=== PATIENT | male | born 1985 | race Caucasian/White ===

== ENCOUNTER 2023-09-16 11:40 | Emergency (ER) | payer MEDICAID, SELFPAY ==
--- NOTE | 2023-09-16 11:51 | ED_ITS ---
[facility] - General Adult General Chief complaint: Skin/Abscess/Foreign Body Stated complaint: lump on back of head Time Seen by Provider: 09/16/23 11:50 Source: patient and lang interpreter Mode of arrival: ambulatory Limitations: language barrier History of Present Illness ED Provider: citlalli [facility] narrative: Patient is a 38-year-old Rwandan-speaking male presenting to the emergency department with complaint of mass to his occipital scalp for the past several months. Reports the area began as a pinpoint area and has since grown in size. States recently has become tender and is interfering with his sleep/laying his head on the pillow. Denies any discharge or drainage from the mass at any point since onset. Denies fevers. States he called his PCP but was unable to be seen for several months. MD complaint: mass of scalp Onset (ago): month(s) Location: head Radiation: non-radiation Severity: moderate Quality: aching Pain Consistency: constant Relieving factors: none Associated symptoms: denies other symptoms Treatments prior to arrival: none Related Data Allergies Allergy/AdvReac Type Severity Reaction Status Date / Time No Known Allergies Allergy Verified 09/16/23 12:00 Review of Systems 2 Review of Systems: Patient is a 38-year-old Rwandan-speaking male presenting to the emergency department with complaint of mass to his occipital scalp for the past several months. Yes all other systems are reviewed and are negative Constitutional: Constitutional: Reports as per [facility] Social History Social History Advance Directives: No Advance Directives Information Provided: No Do you have a plan to hurt others: No Plan Physical Exam ED Vital Signs: Vital Signs - 24 hr 09/16/23 11:56 Temperature 98.1 F Pulse Rate 73 Respiratory Rate 17 Blood Pressure 125/83 Pulse Oximetry 97 Oxygen Delivery Method Room Air BMI result Body Mass Index 23.6 Vital signs have been reviewed and appear to be correct. Blood pressure normal. Heart rate normal. Respiratory rate normal. Temperature normal. Oxygen saturation normal. Const General: cooperative, healthy appearing and no acute distress Orientation/consciousness: oriented to person, oriented to place, oriented to time and patient oriented x3 Limitations: no limitations HENMT Head: Yes normocephalic and Yes atraumatic Head images: 2 1. 1cm diameter immobile tender flesh-colored nodule without hair, no fluctuance, no erythema, no warmth, no drainage Ears: external ears normal General nose exam: Normal external nose present Face and sinus: Yes face symmetric Mouth: oropharynx normal and moist mucous membranes Throat: Yes uvula midline Eyes Pupils: Equal, round and reactive pupils present Neck Neck: Yes normal visual inspection and Yes supple Lymphatic: no lymphadenopathy noted Resp Effort & Inspection: normal respiratory effort and able to speak in complete sentences Auscultation: clear to auscultation bilaterally Cardio Rate: regular rate Rhythm: regular rhythm Heart sounds: S1 normal heart sound present and S2 normal heart sound present GI Palpation (GI): Soft to palpation and nontender Auscultation: normoactive bowel sounds General: Yes no CVA tenderness Back/Spine/Pelvis Back: no CVA tenderness Skin General skin exam: elasticity normal and turgor normal Neuro General: oriented to person, oriented to place, oriented to time, patient oriented x3, moves all extremities, no focal motor deficits and CN's II-XI intact bilaterally Cranial nerves: Yes Equal, round and reactive pupils present Cognition (Neuro): normal cognition Extrem General: Yes full ROM, Yes no pedal edema and Yes no calf tenderness Psych Mental Status: mental status grossly normal Affect: normal affect Thought process: Normal thought process present Medical Decision Making Medical Decision Making [facility] Narrative: Patient is a 38-year-old Rwandan-speaking male presenting to the emergency department with complaint of mass to his occipital scalp for the past several months. On exam patient is awake, A+Ox3, VS WNL, afebrile, normal neurological exam without focal deficits, physical exam findings as above. Given reported symptoms and physical exam findings, initial differential includes folliculitis, cyst, abscess. Discussed with patient that as area is not fluctuant, erythematous or warm, unlikely abscess or folliculitis. Advised patient he will need to follow-up with a surgeon for likely biopsy of the mass to determine etiology. Offered to treat patient with course of antibiotics to see if this decreases tenderness to the area. Patient declined treatment with antibiotics. Will refer to General surgery for further evaluation and management. Advised patient to contact PCP and notify them he was seen in the emergency department but referred to surgery. Return precautions discussed at bedside. Patient verbalized understanding of and agreement with plan. Differential Diagnosis Differential Diagnoses: The differential diagnosis associated with the presentation includes As per [facility] External Record Review External record reviewed: Inpatient record, Office record and Outpatient record Prescription Management I considered prescription management with: Antibiotic (patient refused) Discharge Plan Discharge Clinical Impression: Mass of scalp Patient Disposition: Home, Self-Care Additional Instructions: You were evaluated in the emergency department for a mass to your scalp. It is recommended that you follow up with general surgery for further evaluation and management. You should follow up with your primary care provider as well. Return to the emergency department if you notice redness, warmth, or drainage from the area or develop fever. Referrals: [facility] [place] [facility] [Provider Group] Print Language: Lithuanian
[2023-09-16 11:56] VITALS: BP 125/83; PULSE 73; RESP 17; TEMP 36.7; O2SAT 97; BMI 23.6
[2023-09-16 12:53] VITALS: BP 115/76; PULSE 60; RESP 12; TEMP 36.2; O2SAT 97
== END 2023-09-16 12:54 | disposition home or self-care (01) ==
PROVIDERS: Emergency Provider Emergency Medicine; PCP Nurse Practitioner
DX: R22.0 Localized swelling, mass and lump, head (principal)
CPT/HCPCS: 99282

== ENCOUNTER 2023-09-26 08:35 | Outpatient (REF) | payer MEDICAID, SELFPAY | END 2023-09-26 08:36 | disposition home or self-care (01) | LOC: HO.LAB 08:35 | PROVIDERS: PCP Nurse Practitioner; Visit Provider Surgery | DX: L02.811 Cutaneous abscess of head [any part, except face] (principal) | CPT/HCPCS: 10060; 87070; 87205; 99202 ==

== ENCOUNTER 2023-09-26 08:35 | Outpatient (AMB) | payer MEDICAID, SELFPAY ==
--- NOTE | 2023-09-26 08:48 | MHC.OFFVIS ---
Vital Signs 09/26/23 08:49 Height 5 ft 9 in Weight 167 lb 1.766 oz BMI 24.7 BP 112/78 Blood Pressure Location Lt brachial Position Sitting Intake Visit Reasons: lump back of head Intake Note: Patient is seen in office for evaluation and treatment of a lump of the back of the head. Pt c/o: onset for 3 months, has increase in size, some discharge, pain, at times feels dizzy, and uncomfortable when laying on it Christmas Bell Ringer Required: Yes Christmas Bell Ringer Language: Skin Grader Services: Christmas Bell Ringer Present Christmas Bell Ringer Name: Aury AVALOS Information Interpreted: non-clinical & clinical Straw Hat Washer Operator: Straw Hat Washer Operator Present Accompanied by: Family/Other Allergies No Known Allergies Allergy (Verified 09/26/23 08:49) Medication List - Last Reconciled 09/26/23 by Shiraz Grove MD cephalexin 500 mg PO TID hydrocodone-acetaminophen 5-325 mg 1 tab PO Q4-6H PRN HPI Comments Details: Patient presents because of an infected posterior scalp cyst. He has had a cyst here for many years time. Over the last several weeks has become painful and tender and yesterday spontaneously drained pus. Patient presents here with his . Chart was reviewed and patient evaluate Physical Exam Vital Signs: Last Vital Signs BP 112/78 09/26/23 08:49 BMI result Body Mass Index 24.7 HEENT Other: Proximally 3 x 2 cm if infected right posterior scalp cyst. Office Procedures I&D Drain Details: Risks, benefits, alternatives of incision and drainage of posterior scalp abscess were reviewed the patient and included but not limited to bleeding, infection, recurrence, numbness, pain, scarring the patient was to proceed. All questions answered. After appropriate positioning, patient underwent % lidocaine and Betadine prep and uneventfully incision drainage of posterior scalp abscess. Copious amounts of purulent material were retrieved. Cultures were obtained. Wounds irrigated, secured hemostasis, packed, and dressing applied. Patient tolerated procedure well 70495-Rsvezhjm of Skin Abscess, complex All charges added?: Procedure code (CPT) selection complete Assessment & Plan Assessment & Plan (1) Scalp abscess: Code(s): L02.811 - Cutaneous abscess of head [any part, except face] Category: Surgical Plan: Arrangements were made with the anterior guarding packing changes, patient will be given analgesics, antibiotics, local wound instructions, and will see me as directed or p.r.n.. All questions answered. Orders: Orders AMB Incision & Drainage Today L02.811 - Cutaneous abscess of head [any part, except face] Medications: New hydrocodone-acetaminophen 5-325 mg Partial Fill upon patient request. 1 tab PO Q4-6H PRN 30 tabs 0RF pain cephalexin 500 mg PO TID 30 caps 0RF Coding Level of Care Code New Pt Level 5 (10402) Diagnoses Scalp abscess L02.811 CPT Codes I&D Drain - Drain 2: 97694-Egwaaivr of Skin Abscess, complex ([id number])
[2023-09-26 08:49] VITALS: BP 112/78; BMI 24.7
== END 2023-09-26 09:27 | disposition home or self-care (01) ==
PROVIDERS: PCP Nurse Practitioner; Referring Provider Nurse Practitioner; Visit Provider Surgery
DX: L02.811 Cutaneous abscess of head [any part, except face] (principal)
CPT/HCPCS: 10060; 99204

== ENCOUNTER → 2023-09-27 14:30 | Outpatient (BNVA) | payer MEDICAID, SELFPAY | PROVIDERS: PCP Nurse Practitioner; Visit Provider Surgery | DX: Z48.01 Encounter for change or removal of surgical wound dressing (principal) | CPT/HCPCS: 99211 ==

== ENCOUNTER → 2023-09-28 13:28 | Outpatient (BNVA) | payer MEDICAID, SELFPAY | PROVIDERS: PCP Nurse Practitioner; Visit Provider Surgery | DX: Z48.00 Encounter for change or removal of nonsurgical wound dressing (principal) | CPT/HCPCS: 99211 ==

== ENCOUNTER → 2023-10-01 14:23 | Outpatient (BNVA) | payer MEDICAID, SELFPAY | PROVIDERS: PCP Nurse Practitioner; Visit Provider Surgery ==

== ENCOUNTER 2023-11-19 08:52 | Outpatient (AMB) | payer MEDICAID, SELFPAY ==
--- NOTE | 2023-11-19 08:56 | A.OFFVIS_ITS ---
Vital Signs 11/19/23 09:03 Height 5 ft 9 in Weight 164 lb BMI 24.2 BP 128/82 Blood Pressure Location Rt brachial Position Sitting Pulse 77 Intake Visit Reasons: discuss pilar cyst excision Intake Note: Patient here s/p I&D cyst on posterior scalp. Patient c/o: smaller bumps around scar. tender to touch. Would like to know if cyst is spreading. Sales Coordinator Required: No Accompanied by: spouse Salima Allergies No Known Allergies Allergy (Verified 11/19/23 09:02) HPI Comments Details: Patient presents with a significant other. He is here for follow-up status post I&D of infected Pilar cyst of posterior scalp. He has no acute issues but would like to have the cyst excised. Physical Exam Vital Signs: Last Vital Signs Pulse 77 11/19/23 09:03 BP 128/82 11/19/23 09:03 BMI result Body Mass Index 24.2 HEENT Other: I&D wound very well completely healed. Pilar cyst distal palpable. Assessment & Plan Assessment & Plan (1) Pilar cyst of scalp: Code(s): L72.11 - Pilar cyst Category: Surgical Plan Current plan is to arrange for office Pilar cyst excision in the few weeks time. Arrangements made for this. All questions answered. Coding Level of Care Code Global (14783) Diagnoses Pilar cyst of scalp L72.11
[2023-11-19 09:03] VITALS: BP 128/82; PULSE 77; BMI 24.2
== END 2023-11-19 09:14 | disposition home or self-care (01) ==
PROVIDERS: PCP Nurse Practitioner; Visit Provider Surgery
DX: L72.11 Pilar cyst (principal)
CPT/HCPCS: 99024

== ENCOUNTER → 2023-11-19 08:52 | Outpatient (BNVA) | payer MEDICAID, SELFPAY | PROVIDERS: PCP Nurse Practitioner; Visit Provider Surgery | DX: L72.11 Pilar cyst (principal); Z48.817 Encounter for surgical aftercare following surgery on the skin and subcutaneous tissue; Z98.890 Other specified postprocedural states | CPT/HCPCS: 99212 ==

== ENCOUNTER 2024-01-21 08:55 | Outpatient (AMB) | payer MEDICAID, SELFPAY ==
[2024-01-21 09:02] VITALS: BP 126/76; RESP 76; BMI 24.2
--- NOTE | 2024-01-21 09:02 | A.OFFVIS_ITS ---
Vital Signs 01/21/24 09:02 Height 5 ft 9 in Weight 164 lb BMI 24.2 BP 126/76 Blood Pressure Location Rt brachial Position Sitting Respiration 76 H Intake Visit Reasons: Excision cyst~ post scalp Intake Note: Patient here for excision of cyst on posterior scalp. Wad Compressor Operator Adjuster Required: No Accompanied by: Spouse Allergies No Known Allergies Allergy (Verified 01/21/24 09:03) HPI Comments Details: Patient presents with a significant other. He wished to have elective excision of the posterior scalp pilar cyst. He is status post I&D of this in the past. Physical Exam Vital Signs: Last Vital Signs Resp 76 H 01/21/24 09:02 BP 126/76 01/21/24 09:02 BMI result Body Mass Index 24.2 HEENT Other: On exam today, the I&D incision site is well healed. There was no evidence of recurrence or persistence of the pilar cyst Assessment & Plan Assessment & Plan (1) Pilar cyst of scalp: Code(s): L72.11 - Pilar cyst Category: Surgical Plan I discussed with the patient that no need for excision at this time because the cyst has not recurred or require excision. All questions answered. Patient will otherwise follow-up p.r.n.. Coding Level of Care Code Est Pt Level 3 (39172) Diagnoses Pilar cyst of scalp L72.11
== END 2024-01-21 09:18 | disposition home or self-care (01) ==
PROVIDERS: PCP Nurse Practitioner; Visit Provider Surgery
DX: L72.11 Pilar cyst (principal)
CPT/HCPCS: 99213

== ENCOUNTER → 2024-01-21 08:55 | Outpatient (BNVA) | payer MEDICAID, SELFPAY | PROVIDERS: PCP Nurse Practitioner; Visit Provider Surgery | DX: L72.11 Pilar cyst (principal) | CPT/HCPCS: 99212 ==

== ENCOUNTER 2024-04-07 12:54 | Outpatient (AMB) | payer MEDICAID, SELFPAY ==
--- NOTE | 2024-04-07 12:57 | MHC.OFFVIS ---
Vital Signs 04/07/24 13:03 Height 5 ft 9 in Weight 171 lb BMI 25.2 BP 138/77 Blood Pressure Location Lt brachial Position Sitting Pulse 82 Intake Visit Reasons: pilar cyst recurrent Intake Note: Patient called and scheduled today's appointment for pilar cyst on scalp. Present for 2wks. Patient c/o: pain, tenderness. Experience Specialist Required: No Accompanied by: spouse Salima Allergies No Known Allergies Allergy (Verified 04/07/24 13:03) Medication List - Last Reconciled 04/07/24 by Shiraz Grove MD No Known Home Meds HPI Comments Details: Patient presents with a significant other. He was seen in the past for an infected posterior scalp cyst by me. He now presents with a similar complaint involving the top/vertex of his scalp. This has been going on for rough 2 weeks time. Physical Exam Vital Signs: Last Vital Signs Pulse 82 04/07/24 13:03 BP 138/77 04/07/24 13:03 BMI result Body Mass Index 25.2 HEENT Other: Patient has at the vertex of his scalp an area of induration but no fluctuance or abscess consistent with inflammation of sebaceous cyst. Assessment & Plan Assessment & Plan (1) Infected sebaceous cyst: Code(s): L72.3 - Sebaceous cyst; L08.9 - Local infection of the skin and subcutaneous tissue, unspecified Category: Surgical Plan Current plan is to attempt conservative therapy with local wound care in the form of warm compresses periodically and antibiotics. Patient was see me in few days' time for follow-up. Should symptoms progressively worsened nerves symptom, he has been instructed to contact the office. All questions answered. Medications: New cephalexin 500 mg PO TID 30 caps 0RF Coding Level of Care Code Est Pt Level 4 (26305) Diagnoses Infected sebaceous cyst L72.3; L08.9
[2024-04-07 13:03] VITALS: BP 138/77; PULSE 82; BMI 25.2
== END 2024-04-07 13:07 | disposition home or self-care (01) ==
PROVIDERS: PCP Nurse Practitioner; Visit Provider Surgery
DX: L72.3 Sebaceous cyst (principal); L08.9 Local infection of the skin and subcutaneous tissue, unspecified
CPT/HCPCS: 99214

== ENCOUNTER → 2024-04-07 12:54 | Outpatient (BNVA) | payer MEDICAID, SELFPAY | PROVIDERS: PCP Nurse Practitioner; Visit Provider Surgery | DX: L72.3 Sebaceous cyst (principal); L08.9 Local infection of the skin and subcutaneous tissue, unspecified | CPT/HCPCS: 99212 ==

== ENCOUNTER 2024-04-21 08:57 | Outpatient (REF) | payer MEDICAID, SELFPAY ==
--- OUTSIDE RECORDS SUMMARY | 2024-04-21 10:37 | XMS_ITS | Clinical Summary ---
Author Organization [facility] Address [address] [place] [address] Care Team Providers Care Chip Unloader Name Role Phone Jj Maya BUSTILLO Primary Care Provider [phone] Source Comments PLEASE NOTE, if this patient [...] Visit 08/03/2023 08/02/2022 Tobacco Screening 08/03/2023 08/02/2022 [id number] ( season) 2023 Imm-Influenza (#1) 2023 Alcohol and Drug Screen 02/27/2024 08/02/2022 Depression Annual Screen 02/27/2024 08/02/[address] [employer] Care Teams Chip Unloader Relationship Specialty Start Date End Date Maya Gardner NP [address] [place] [address] PCP - General Family Medicine, DISPLAY DECORATOR 01/01/24
== END 2024-04-21 08:58 | disposition home or self-care (01) ==
LOC: HO.LNP 08:57
PROVIDERS: PCP Nurse Practitioner; Visit Provider Surgery
DX: L72.0 Epidermal cyst (principal)
CPT/HCPCS: 11423; 88304; J2004

== ENCOUNTER 2024-04-21 08:57 | Outpatient (AMB) | payer MEDICAID, SELFPAY ==
--- NOTE | 2024-04-21 08:58 | MHC.OFFVIS ---
Intake Visit Reasons: 2wk pilar cyst vertex post scalp Intake Note: Patient here 2wk follow up pilar cyst on vertex scalp. Finished Cephalexin course. Patient c/o: feels like cyst is enlarging. C/o headaches. Strategic Marketing Associate Required: No Accompanied by: Spouse Allergies No Known Allergies Allergy (Verified 04/21/24 09:01) HPI Comments Details: Patient presents with a significant other. He was seen in the past for a scalp cyst. He now presents with a 2nd scalp cyst at the vertex which is increasing in size, become more symptomatic. Like to have it excised. Patient was known to me as noted above. Physical Exam HEENT Other: Patient was a roughly 3 x 2 cm vertex of scalp sebaceous cyst/soft tissue mass. No other lesions demonstrated. Office Procedures Excision Details: Risks, benefits, alternatives of excision of scalp cyst were reviewed with the patient included but not limited to bleeding, infection, recurrence, numbness, pain, scarring the patient wished to proceed. All questions answered. Consent site. After appropriate positioning, patient underwent 1% lidocaine and Betadine prep and a transverse by elliptical incision was made around the lesion in question. Specimen sent to pathology. Size was roughly 3 x 2 cm. Wound was irrigated, secured hemostasis, and closed using interrupted 2-0 Prolene sutures followed by bacitracin. Patient tolerated procedure well. 86527-Bivdiwei scalp/neck/hands/feet/genitalia 2.1cm-3cm Procedure code (CPT) selection complete Office Meds lidocaine 1 %-epinephrine 1:100,000 injection solution Performing Provider: Shiraz Grove MD Performing Location: [facility] [place] General Surgeons Administered by: Shiraz Grove MD on 04/21/24 09:30 Dose Route Admin Location Dispensed Lot Number Expiration Date [facility] Fabricator Artificial Breast 10 mL Infiltration 10 mL Assessment & Plan Assessment & Plan (1) Cyst, dermoid, scalp and neck: Code(s): D23.4 - Other benign neoplasm of skin of scalp and neck Category: Surgical Plan: Patient was been given local instructions including ice periodically, bacitracin each day, may shower starting tomorrow, and Tylenol or Motrin p.r.n. pain. All questions answered. Patient will see me as directed or p.r.n.. Orders: Orders AMB Excision Today D23.4 - Other benign neoplasm of skin of scalp and neck Medications: New lidocaine-epinephrine 1 %-1:100,000 10 mL Infiltration ONCE 30 mL 0RF D23.4 - Other benign neoplasm of skin of scalp and neck Coding Level of Care Code Est Pt Level 5 (32094) Diagnoses Cyst, dermoid, scalp and neck D23.4 CPT Codes Scalp/Neck/Hands/Feet/Genetalia - CPT: 58295-Mxndtkkq scalp/neck/hands/feet/genitalia 2.1cm-3cm ([id number])
--- OUTSIDE RECORDS SUMMARY | 2024-04-21 09:27 | XMS_ITS | Clinical Summary ---
Author Organization [facility] Address [address] [place] [address] Care Team Providers Care Content Checker Name Role Phone Jj Maya BUSTILLO Primary Care Provider [phone] Source Comments PLEASE NOTE, if this patient is a minor, it may be UNLAWFUL to discuss sensitive information that is contained in these records (such as FAMILY PLANNING, MENTAL HEALTH or SUBSTANCE ABUSE) with the minor patient's parent or other person without the patient's specific authorization.[facility] Allergies No known active allergies Medications nicotine, polacrilex, (NICORETTE) 4 mg gumIndications: Tobacco use disorder Take 1 Each by mouth as needed for smoking cessation Max 24 pieces per day. 110 Each 2 3 Active Active Problems Problem Noted Date Diagnosed Date Tobacco use disorder 06/08/2016 Family History Medical History Relation Name Comments Cancer Neg Social History Tobacco Use Types Packs/Day Years Used Date Smoking Tobacco: Every Day Cigarettes 0.5 12 Comments:Started age 25 Alcohol Use Standard Drinks/Week Comments No 0 (1 standard drink = 0.6 oz pur e alcohol) Social Connections Answer Date Recorded Connectedness 0 11/16/2023 Financial Resource Strain Answer Date R ecorded Financial Resource Strain 0 2022 Stress Answer Date Recorded Stress 0 08/02/2022 Physical Activity Answer Date Recorded Physical Activity 0 08/02/2022 Food Insecurity Answer Date Recorded Food 0 11/22/2023 Transportation Needs Answer Date Record ed Transportation 0 08/02/2022 Housing Stability Answer Date Recorded Housing 0 08/02/2022 Safety and Environment Answer Date Bernardino rded Safety 0 08/02/2022 Utilities Answer Date Recorded Utilities 0 08/02/2022 Employment Answer Date Recorded Stress 0 11/16/2023 Sex and Gender Information Value Date Recorded Sex Assigned at Male 08/02/2022 11:51 AM PDT Legal Sex Male 12:59 PM PST Gender Identity Male 08/02/2022 11:51 AM PDT Sexual Orientation Straight 08/02/2022 11 :51 AM PDT Last Filed Vital Signs Vital Sign Reading Time Taken Comments Blood Pressure 130/80 08/02/2022 2:48 PM EDT Pulse 74 08/02/2022 2:48 PM EDT Temperature 36.5 ??C (97.7 ??F) 08/02/2022 2:48 PM ED T Respiratory Rate 16 08/02/2022 2:48 PM EDT Oxygen Saturation 97% 06/08/2016 3:19 PM EDT Inhaled Oxygen Concentration - - Weight 70.8 kg (156 lb) 08/02/2022 2:48 PM EDT Height 175.3 cm (5' 9 ) 08/02/2022 2:48 PM EDT Body Mass Index 23.04 08/02/2022 2:48 PM EDT Plan of Treatment Health Maintenance Due Date Last Done Comments Diabetes Screening 1987 Hepatitis C Screening 1987 HIV Screening 2002 Imm-DTaP/Tdap/Td (1 - Tdap) 2006 Imm-Hepatitis B (1 of 3 - 19+ 3-dose series) 7 Imm-Pneumococcal (1 of 2 - PCV) 2006 Hypertension Screening (#1) 08/02/2023 Tobacco Cessation Counseling (#1) 08/02/2023 023 Annual Preventive Care Visit 08/03/2023 08/02/2022 Tobacco Screening 08/03/2023 08/02/2022 [id number] ( season) 2023 Imm-Influenza (#1) 2023 Alcohol and Drug Screen 02/27/2024 08/02/2022 Depression Annual Screen 02/27/2024 08/02/[address] [employer] Care Teams Content Checker Relationship Specialty Start Date End Date Maya Gardner NP [address] [place] [address] PCP - General Family Medicine, UNDERWATER HUNTER TRAPPER 01/01/24
== END 2024-04-21 09:10 | disposition home or self-care (01) ==
PROVIDERS: PCP Nurse Practitioner; Visit Provider Surgery
DX: L72.0 Epidermal cyst (principal)
CPT/HCPCS: 11423

== ENCOUNTER 2024-05-05 08:29 | Outpatient (AMB) | payer MEDICAID, SELFPAY ==
--- NOTE | 2024-05-05 08:46 | MHC.OFFVIS ---
Intake Visit Reasons: s/p excision pilar cyst vertex post scalp Intake Note: Patient here s/p cyst excision on mid vertex scalp. Reports incision healing well. Patient c/o: sensitive, tender when pressed. Denies oozing. WLE: 04-21-2024 Lead Mechanical Engineer Required: No Accompanied by: Spouse Allergies No Known Allergies Allergy (Verified 05/05/24 08:47) HPI Comments Details: Patient presents with a significant other for follow-up. He has no wound issues or complaints. Pathology was benign. Physical Exam HEENT Other: Incision clean dry and intact. Sutures uneventfully removed. Assessment & Plan Assessment & Plan (1) Encounter for postoperative wound check: Code(s): Z48.89 - Encounter for other specified surgical aftercare Category: Surgical Plan Patient was been given local instructions, and will otherwise follow-up p.r.n.. All questions answered. Coding Level of Care Code Global (67129) Diagnoses Encounter for postoperative wound check Z48.89
== END 2024-05-05 08:49 | disposition home or self-care (01) ==
PROVIDERS: PCP Nurse Practitioner; Visit Provider Surgery
DX: Z48.89 Encounter for other specified surgical aftercare (principal)
CPT/HCPCS: 99024

== ENCOUNTER → 2024-05-05 08:29 | Outpatient (BNVA) | payer MEDICAID, SELFPAY | PROVIDERS: PCP Nurse Practitioner; Visit Provider Surgery | DX: Z48.89 Encounter for other specified surgical aftercare (principal) | CPT/HCPCS: 99212 ==